=== PATIENT | female | born 1955 | race Caucasian/White ===

== ENCOUNTER 2021-12-11 19:15 | Emergency (ER) | payer OTHER, SELFPAY ==
[2021-12-11 19:27] VITALS: BP 188/91; PULSE 70; RESP 18; TEMP 36.7; O2SAT 98; BMI 34.9
--- NOTE | 2021-12-11 19:34 | DI.RAD.S_ITS ---
PROCEDURE: XR CHEST 1V INDICATIONS: chest pain TECHNIQUE: One view of the chest was acquired. COMPARISON: None. FINDINGS: Surgical changes and devices: None. Lungs and pleura: Lungs are clear. No pleural effusions or pneumothorax. Mediastinum: Mediastinal contours appear normal. Heart size is normal. Bones and chest wall: No suspicious bony lesions. Overlying soft tissues appear unremarkable. IMPRESSION: No acute process. Dictated by: Sarah Aldrich M.D. on 12/11/2021 at 19:48 Approved by: Sarah Aldrich M.D. on 12/11/2021 at 19:48
[2021-12-11 19:45] VITALS: PULSE 65; O2SAT 96
[2021-12-11 20:00] VITALS: PULSE 61; RESP 28; O2SAT 96
[2021-12-11 20:04] LABS: Add Manual Diff / Slide Review NO; Basophils Absolute Auto 100 /uL (0-100); Basophils Percent Auto 0.5 % (0-2); Eosinophils Absolute Auto 300 /uL (0-450); Eosinophils Percent Auto 2.9 % (2-4); Hematocrit 41.3 % (36-46); Hemoglobin 13.8 g/dL (12.0-16.0); Lymphocytes Absolute Auto 2700 /uL (1100-4500); Lymphocytes Percent Auto 23.5 % (25-40); Mean Corpuscular HGB Conc 33.3 % (30-36); Mean Corpuscular Hemoglobin 29.6 PG (26-34); Mean Corpuscular Volume 88.9 fL (80-100); Monocytes Absolute Auto 600 /uL (0-900); Neutrophils Absolute Auto 7800 /uL (1500-7000); Neutrophils Percent Auto 68.1 % (50-75); Platelet Count 309 X10^3/uL (150-400); Red Blood Cell Count 4.65 X10^6/uL (4.0-5.2); Red Cell Distribution Width 14.3 % (11.6-14.8); White Blood Cell Count 11.4 X10^3/uL (4.5-11.0)
[2021-12-11 20:16] LABS: Alanine Aminotransferase 15 IU/L (<35); Albumin 4.1 g/dL (3.5-5.0); Albumin Globulin Ratio 1.2 (1.0-2.8); Alkaline Phosphatase 83 U/L (38-126); Aspartate Aminotransferase 25 IU/L (14-36); BUN Creatinine Ratio 17.5 (6-22); Bilirubin Total 0.3 mg/dL (0.2-1.3); Blood Urea Nitrogen 18 mg/dL (7-17); Calcium 8.9 mg/dL (8.4-10.2); Carbon Dioxide 25 mmol/L (22-32); Chloride 104 mmol/L (98-107); Creatine Kinase 118 U/L (30-135); Estimated Glomerular Filt Rate > 60 mL/min (>60); Globulin 3.3 g/dL (1.7-4.1); Glucose 101 mg/dL (80-110); HEMOLYSIS < 15 (0-50); Lipase 80 U/L (23-300); Magnesium 1.9 mg/dL (1.6-2.3); Potassium 3.5 mmol/L (3.4-5.1); Sodium 137 mmol/L (137-145); Total Protein 7.4 g/dL (6.3-8.2)
[2021-12-11 20:27] LABS: Troponin I < 0.012 ng/mL (0.01-0.034)
[2021-12-11 20:30] VITALS: PULSE 58; RESP 20
[2021-12-11 20:31] LABS: CKMB % Relative Index 1.4 % (1.5-5.0); Creatine Kinase MB 1.61 ng/mL (<2.37)
[2021-12-11] MEDS: GLUCAGON,HUMAN RECOMBINANT 1 MG/ML VIAL IV (20:48)
[2021-12-11 21:42] VITALS: BP 166/84
--- NOTE | 2021-12-12 04:15 | ED_ITS ---
HPI - Chest Pain General Chief Complaint: Chest Pain Stated Complaint: severe chest pain Time Seen by Provider: 12/11/21 19:41 Source: patient Mode of arrival: Family Vehicle Limitations: no limitations History of Present Illness HPI narrative: 66-year-old female nonsmoker with history of GERD and esophageal strictures presents family in the chief complaint of concern for esophageal foreign body. She had been eating some chicken, states there is no bone or sharp objects but that it has become lodged in her throat. She denies any fever chills nor vomiting, she has had no cough or shortness of breath. She states that she is able to still swallow liquids but she can feel them working the way around the piece of chicken she thinks is stuck. She is otherwise well and free of complaint. She states that she had seen a process supervisor a few months ago and had both an endoscopy and colonoscopy and was told that though she has significant inflammation biopsies would suggest against Ward's esophagus Related Data Home Medications Medication Instructions Recorded Confirmed LEVOTHYROXINE SODIUM (Synthroid) 0.125 mg PO EVERY DAY #0 04/06/06 [METROGEL] #0 04/06/06 Allergies Allergy/AdvReac Type Severity Reaction Status Date / Time Tetracyclines Allergy Rash Verified 12/11/21 19:35 Review of Systems Review of Systems Narrative: GENERAL: Denies chills, fatigue, malaise, fever, sweats. HEENT: See HPI RESPIRATORY: Denies dyspnea, cough, wheezing, hemoptysis, sputum. CARDIOVASCULAR: Denies chest pain, palpitations, orthopnea, edema, GASTROINTESTINAL: Denies nausea, vomiting, abdominal pain, diarrhea, constipation, melena. : Denies dysuria, frequency, incontinence, hematuria, urinary retention. MUSCULOSKELETAL: denies weakness, joint pain, or bony pain SKIN: Denies rash, skin lesions, or other NEUROLOGIC: Denies weakness, headache, numbness, change in speech, confusion, seizures, incoordination. PSYCHIATRIC: No concerning psychosocial issues. 12 point review of systems is negative except for those stated above Patient History Social History Smoking Status: Never smoker Smoking Status: Never smoker alcohol intake frequency: 0-2 drinks per day Substance Use Type: does not use Exam Narrative Exam Narrative: GENERAL: [] year old patient appears stated age. Well-developed patient, in mild distress. HEAD: Atraumatic. Normocephalic. EYES: Pupils equal round and reactive. Extraocular motions intact. No scleral icterus. No injection or drainage. ENT: Nose without bleeding, purulent drainage. Throat without erythema, tonsillar hypertrophy or exudate. Airway patent. NECK: Trachea midline. Non tender CARDIOVASCULAR: Regular rate and rhythm without murmurs, gallops, or rubs. RESPIRATORY: Clear to auscultation. Breath sounds equal bilaterally. No wheezes, rales, or rhonchi. GASTROINTESTINAL: Abdomen soft, non-tender, nondistended. EXTREMITIES: No edema or joint tenderness. BACK: Nontender without deformity or crepitance. No flank tenderness. NEURO: AOx3. SKIN: No rash or erythema of visible areas Initial Vital Signs Initial Vital Signs: Vital Signs Temperature 98.1 F 12/11/21 19:27 Pulse Rate 70 12/11/21 19:27 Respiratory Rate 18 12/11/21 19:27 Blood Pressure 188/91 H 12/11/21 19:27 Pulse Oximetry 98 12/11/21 19:27 Course Orders Ordered: ED Orders 12/11/21 19:34 XR chest 1V Stat 12/11/21 19:50 Complete Blood Count AUTO DIFF Stat Comprehensive Metabolic Panel Stat Lipase Stat Magnesium Stat Troponin & CK Cardiac Panel Stat Discontinued Medications Glucagon (Glucagon,Human Recombinant 1 Mg/Ml Vial) 1 mg IV NOW ONE Stop: 12/11/21 20:38 Last Admin: 12/11/21 20:48 Dose: 1 mg Documented by: [email or web address] Reevaluation(s) Reevaluation #1: Patient able to swallow her jessica scotty without vomiting though she can feel fullness in her throat Reevaluation #2: Patient felt significant improvement after use of glucagon in feels like the for eign body has slid down Vital Signs Vital signs: Vital Signs - 8 hr 12/11/21 20:30 12/11/21 21:42 Pulse Rate 58 L Respiratory Rate 20 Blood Pressure 166/84 H MDM - Chest Pain Lab Data Result diagrams: 12/11/21 19:50 12/11/21 19:50 Labs: Lab Results 12/11/21 12/11/21 Range/Units 19:50 19:50 WBC 11.4 H (4.5-11.0) X10^3/uL RBC 4.65 (4.0-5.2) X10^6/uL Hgb 13.8 (12.0-16.0) g/dL Hct 41.3 (36-46) % MCV 88.9 (80-100) fL MCH 29.6 (26-34) PG MCHC 33.3 (30-36) % RDW 14.3 (11.6-14.8) % Plt Count 309 (150-400) X10^3/uL Neut % (Auto) 68.1 (50-75) % Lymph % (Auto) 23.5 L (25-40) % [place] % (Auto) 5.0 (3-14) % Eos % (Auto) 2.9 (2-4) % Baso % (Auto) 0.5 (0-2) % Neut # (Auto) 7800 H (8583-9038) /uL Lymph # (Auto) 2700 (6449-0991) /uL [place] # (Auto) 600 (0-900) /uL Eos # (Auto) 300 (0-450) /uL Baso # (Auto) 100 (0-100) /uL Sodium 137 (137-145) mmol/L Potassium 3.5 (3.4-5.1) mmol/L Chloride 104 (98-107) mmol/L Carbon Dioxide 25 (22-32) mmol/L BUN 18 H (7-17) mg/dL Creatinine 1.03 (0.52-1.04) mg/dL Estimated GFR > 60 (>60) mL/min BUN/Creatinine Ratio 17.5 (6-22) Glucose 101 (80-110) mg/dL Calcium 8.9 (8.4-10.2) mg/dL Magnesium 1.9 (1.6-2.3) mg/dL Total Bilirubin 0.3 (0.2-1.3) mg/dL AST 25 (14-36) IU/L ALT 15 (<35) IU/L Alkaline Phosphatase 83 (38-126) U/L Total Creatine Kinase 118 (30-135) U/L CK-MB (CK-2) 1.61 (<2.37) ng/mL CK-MB (CK-2) Rel Index 1.4 L (1.5-5.0) % Troponin I < 0.012 (0.01-0.034) ng/mL Total Protein 7.4 (6.3-8.2) g/dL Albumin 4.1 (3.5-5.0) g/dL Globulin 3.3 (1.7-4.1) g/dL Albumin/Globulin Ratio 1.2 (1.0-2.8) Lipase 80 (23-300) U/L Imaging Data Chest x-ray: Radiologist's Impression: Dipti Gupta??66??F??1955 ? Allergy/Adv: Tetracyclines Close Chest X-Ray (Signed) Sarah Aldrich - 12/11/21 Launch?[address] [address] XRay Report Signed Patient: Dipti Gupta MR#: [id number] : 1955 Acct:[id number] Age/Sex: 66 / F Date of Service: 12/11/21 Loc: ED Accession Number: [id number] ?? Procedure: XR chest 1V Ordering Provider: Erick Lemon D.O. PROCEDURE:? XR CHEST 1V ? INDICATIONS:? chest pain ? TECHNIQUE:? One view of the chest was acquired.? ? COMPARISON:? None. ? FINDINGS:? ? Surgical changes and devices:? None.? ? Lungs and pleura:? Lungs are clear.? No pleural effusions or pneumothorax.? ? Mediastinum:? Mediastinal contours appear normal.? Heart size is normal.? ? Bones and chest wall:? No suspicious bony lesions.? Overlying soft tissues appear unremarkable.? ? IMPRESSION:? No acute process. ? ? Dictated by: Sarah Aldrich M.D. on 12/11/2021 at 19:48 ? ? Approved by: Sarah Aldrich M.D. on 12/11/2021 at 19:48 ? [facility] Narrative Medical decision making narrative: Patient presents with concern for esophageal foreign body. She is quite certain that there were no bones, sharp or metallic objects. She feels fullness and difficulty swallowing but is able to get liquids down initially and has significant improvement after dose of glucagon. Chest x-ray is unremarkable neuro is no evidence of retained foreign body or perforation. She is tolerating orals without difficulty return precautions have been given and questions answered to her apparent satisfaction Discharge Plan Departure Patient Disposition: Home Clinical Impression: Esophageal foreign body Instructions: DI for Removal of Foreign Body From Esophagus Activity Restrictions/Additional Instructions: You likely had an esophageal foreign body that was helped to pass by the administration of glucagon. It is not uncommon to have some residual discomfort afterwards that is typically due to inflammation. Please continue taking your regular medications and follow up with the doctor that performed your recent EGD, call the office and let them know that you were seen in the emergency department and we'd like you seen in follow up. Return for any concerns Prescriptions: No Action LEVOTHYROXINE SODIUM (Synthroid) 0.125 mg PO EVERY DAY Qty: 0 0RF [METROGEL] Qty: 0 0RF Visit Report Forms: Patient Portal/API
== END 2021-12-11 21:42 | disposition home or self-care (01) ==
PROVIDERS: Emergency Provider Emergency Medicine
DX: T18.108A Unspecified foreign body in esophagus causing other injury, initial encounter (principal)
CPT/HCPCS: 36415; 71045; 80053; 82550; 82553; 83690; 83735; 84484; 85025; 93005; 93010; 96374; 99284; J1610

== ENCOUNTER 2022-01-21 15:45 | Emergency (ER) | payer OTHER, SELFPAY ==
[2022-01-21 16:05] VITALS: BP 168/91; PULSE 81; RESP 18; TEMP 36.6; O2SAT 98; BMI 31.0
--- NOTE | 2022-01-21 16:06 | DI.RAD.S_ITS ---
PROCEDURE: XR CHEST 1V INDICATIONS: chest pain TECHNIQUE: One view of the chest was acquired. COMPARISON: [facility], CR, XR CHEST 1V, 12/11/2021, 19:36. FINDINGS: Surgical changes and devices: None. Lungs and pleura: Lungs are clear. No pleural effusions or pneumothorax. Mediastinum: Mediastinal contours appear normal. Heart size is normal. Bones and chest wall: No suspicious bony lesions. Overlying soft tissues appear unremarkable. IMPRESSION: No acute cardiopulmonary findings. Dictated by: Angela Moss M.D. on 01/21/2022 at 16:47 Approved by: Angela Moss M.D. on 01/21/2022 at 16:48
[2022-01-21 16:47] LABS: Add Manual Diff / Slide Review NO; Basophils Absolute Auto 0 /uL (0-100); Basophils Percent Auto 0.4 % (0-2); Eosinophils Absolute Auto 0 /uL (0-450); Eosinophils Percent Auto 0.5 % (2-4); Hematocrit 43.8 % (36-46); Hemoglobin 14.9 g/dL (12.0-16.0); Lymphocytes Absolute Auto 1400 /uL (1100-4500); Lymphocytes Percent Auto 30.9 % (25-40); Mean Corpuscular HGB Conc 34.1 % (30-36); Mean Corpuscular Hemoglobin 29.5 PG (26-34); Mean Corpuscular Volume 86.6 fL (80-100); Monocytes Absolute Auto 400 /uL (0-900); Monocytes Percent Auto 9.6 % (3-14); Neutrophils Absolute Auto 2700 /uL (1500-7000); Neutrophils Percent Auto 58.6 % (50-75); Platelet Count 243 X10^3/uL (150-400); Red Blood Cell Count 5.06 X10^6/uL (4.0-5.2); Red Cell Distribution Width 14.3 % (11.6-14.8); White Blood Cell Count 4.6 X10^3/uL (4.5-11.0)
[2022-01-21 16:50] LABS: Alanine Aminotransferase 21 IU/L (<35); Albumin 4.3 g/dL (3.5-5.0); Albumin Globulin Ratio 1.3 (1.0-2.8); Alkaline Phosphatase 76 U/L (38-126); Aspartate Aminotransferase 25 IU/L (14-36); BUN Creatinine Ratio 12.8 (6-22); Bilirubin Total 0.8 mg/dL (0.2-1.3); Blood Urea Nitrogen 10 mg/dL (7-17); Calcium 9.1 mg/dL (8.4-10.2); Carbon Dioxide 26 mmol/L (22-32); Chloride 101 mmol/L (98-107); Creatine Kinase 51 U/L (30-135); D Dimer 649 ng/mL (<230); Estimated Glomerular Filt Rate > 60 mL/min (>60); Globulin 3.2 g/dL (1.7-4.1); Glucose 100 mg/dL (80-110); HEMOLYSIS 17 (0-50); Lipase 127 U/L (23-300); Potassium 3.7 mmol/L (3.4-5.1); Sodium 136 mmol/L (137-145); Total Protein 7.5 g/dL (6.3-8.2)
[2022-01-21 17:02] LABS: NT-proBNP (BNP-Adult 18+) 47 pg/mL (<125); Troponin I < 0.012 ng/mL (0.01-0.034)
[2022-01-21 17:07] LABS: Procalcitonin 0.06 ng/mL (<0.5)
--- NOTE | 2022-01-21 18:11 | DI.CT.S_ITS ---
PROCEDURE: CT ANGIO CHEST PE PROTOCOL INDICATIONS: covid + x 8 days, increasing sob, + dimer TECHNIQUE: After the administration of intravenous contrast, 2 mm thick sections acquired from the pulmonary apices to the posterior costophrenic angles. 3-dimensional maximum intensity projection (MIP) coronal and sagittal reformats were then acquired through the thorax. For radiation dose reduction, the following was used: automated exposure control, adjustment of mA and/or kV according to patient size. COMPARISON: [facility], CR, XR CHEST 1V, 01/21/2022, 16:30. FINDINGS: Image quality: Excellent. Pulmonary arteries: Pulmonary arteries are normal in size, and demonstrate no intraluminal filling defects to suggest central pulmonary embolism. Lungs and pleura: Scattered patchy areas of ground-glass opacity bilaterally. Overall this is [id number] in severity. No pleural effusions or pneumothorax. Central and peripheral airways are patent. Mediastinum: Heart size is normal, without pericardial effusion. No mediastinal or hilar adenopathy. Thoracic aorta is normal in caliber and enhancement. Esophagus is normal in caliber, without hiatal hernia. Bones and chest wall: No suspicious bony lesions. Ribs and thoracic spine appear intact throughout. No axillary or supraclavicular adenopathy. Bilateral breast implants. Abdomen: Visualized upper abdominal solid organs appear normal in the early arterial phase of enhancement. IMPRESSION: 1. No pulmonary embolism. 2. [id number] bilateral patchy ground-glass opacity. This is in keeping with COVID-19. Dictated by: Aman Pat M.D. on 01/21/2022 at 20:09 Approved by: Aman Pat M.D. on 01/21/2022 at 20:15
--- NOTE | 2022-01-21 19:23 | ED_ITS ---
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 Patient states she developed COVID symptoms on January 11 with fevers, generalized weakness, her limbs have felt weak in general, she is had chest discomfort which she describes as heartburn sensation of shortness of breath. She stopped taking her pantoprazole. She is tried Tums at home without any help. She is had nausea she is had vomiting intermittently but not persistently, she is had diarrhea like stools. She is had a sensation of shortness of breath. No syncope. Patient states some mild swelling in her ankles. She is not immunized for coronavirus. Patient states her only surgeries have been hysterectomy and enucleation of her right eye secondary to injury. She is allergic to tetracycline. No tobacco, alcohol or illicit. She states she does not actively have a primary care physician. She has tried ibuprofen with minimal improvement. Related Data Home Medications Medication Instructions Recorded Confirmed LEVOTHYROXINE SODIUM (Synthroid) 0.125 mg PO EVERY DAY ##0 04/06/06 [METROGEL] ##0 04/06/06 Allergies Allergy/AdvReac Type Severity Reaction Status Date / Time Tetracyclines Allergy Rash Verified 12/11/21 19:35 Review of Systems Review of Systems ROS Unobtainable: All systems reviewed & are unremarkable except as noted in HPI and below Patient History Social History Smoking Status: Never smoker Smoking Status: Never smoker alcohol intake frequency: 0-2 drinks per day Substance Use Type: does not use Exam Narrative Exam Narrative: GENERAL: Alert and oriented x three, mild distress. HEENT: Head normocephalic, atraumatic, EOMI, pupils reactive, patient has eye patch over right eye, face symmetric, moist mucous membranes NECK: Supple, full range of motion CARDIOVASCULAR: Regular rate and rhythm without murmurs, rubs or gallops. No JVD. No swelling bilateral lower extremities. RESPIRATORY: Breath sounds equal bilaterally, no wheezes rales or rhonchi. No tachypnea or accessory muscle use. ABDOMEN: Soft, nontender. Normoactive bowel sounds all 4 quadrants. No guarding or rebound, rigidity, no mass : No CVA tenderness EXTREMITIES: Normal range of motion, no clubbing or edema. Neurovascularly intact NEUROLOGICAL: Cranial nerves II through XII grossly intact. Moving all extremities SKIN: Warm, dry, no petechiae, no rashes or lesions. Initial Vital Signs Initial Vital Signs: Vital Signs Temperature 97.8 F 01/21/22 16:05 Pulse Rate 81 01/21/22 16:05 Respiratory Rate 18 01/21/22 16:05 Blood Pressure 168/91 H 01/21/22 16:05 Pulse Oximetry 98 01/21/22 16:05 Oxygen Delivery Method 01/21/22 16:05 Scores PERC Score Age greater than or equal to 50 years: Yes Heart rate greater than or equal to 100 bpm: No Room Air O2 Sat less than 95%: No Unilateral leg swelling: No Recent trauma or surgery: No Hemoptysis: No Prior PE or DVT: No Hormone Use: No Total PERC Score: 1 Course Orders Ordered: Discontinued Medications Al Hydrox/Mg Hydrox/Simethicone 20 ml/ Lidocaine HCl 15 ml 0 ml PO NOW ONE Stop: 01/21/22 19:54 Last Admin: 01/21/22 20:18 Dose: 35 ml Documented By: MEE Reevaluation(s) Reevaluation #1: Patient had GI cocktail was not helpful. We reviewed her findings today that her CT shows pneumonia but no blood clots. Her symptoms are very consistent with her COVID infection to continue to monitor. If she wishes she can buy a pulse oximeter to monitor oxygen saturation at home and I would expect her to start to improve over the next several days although there is a possibility of decline in symptoms. Time: 21:02 Vital Signs Vital signs: Vital Signs - 8 hr 01/21/22 16:05 01/21/22 20:01 Temperature 97.8 F Pulse Rate 81 64 Respiratory Rate 18 18 Blood Pressure 168/91 H 119/61 Pulse Oximetry 98 96 Oxygen Delivery Method Room Air Room Air MDM - SOB/Dyspnea Lab Data Result diagrams: 01/21/22 16:28 01/21/22 16:28 Labs: Lab Results 01/21/22 01/21/22 01/21/22 Range/Units 16:28 16:28 16:28 WBC 4.6 (4.5-11.0) X10^3/uL RBC 5.06 (4.0-5.2) X10^6/uL Hgb 14.9 (12.0-16.0) g/dL Hct 43.8 (36-46) % MCV 86.6 (80-100) fL MCH 29.5 (26-34) PG MCHC 34.1 (30-36) % RDW 14.3 (11.6-14.8) % Plt Count 243 (150-400) X10^3/uL Neut % (Auto) 58.6 (50-75) % Lymph % (Auto) 30.9 (25-40) % [place] % (Auto) 9.6 (3-14) % Eos % (Auto) 0.5 L (2-4) % Baso % (Auto) 0.4 (0-2) % Neut # (Auto) 2700 (5772-3831) /uL Lymph # (Auto) 1400 (5000-5621) /uL [place] # (Auto) 400 (0-900) /uL Eos # (Auto) 0 (0-450) /uL Baso # (Auto) 0 (0-100) /uL D-Dimer 649 H (<230) ng/mL Sodium 136 L (137-145) mmol/L Potassium 3.7 (3.4-5.1) mmol/L Chloride 101 (98-107) mmol/L Carbon Dioxide 26 (22-32) mmol/L BUN 10 (7-17) mg/dL Creatinine 0.78 (0.52-1.04) mg/dL Estimated GFR > 60 (>60) mL/min BUN/Creatinine Ratio 12.8 (6-22) Glucose 100 (80-110) mg/dL Calcium 9.1 (8.4-10.2) mg/dL Total Bilirubin 0.8 (0.2-1.3) mg/dL AST 25 (14-36) IU/L ALT 21 (<35) IU/L Alkaline Phosphatase 76 (38-126) U/L Total Creatine Kinase 51 (30-135) U/L CK-MB (CK-2) TNP CK-MB (CK-2) Rel Index TNP Troponin I < 0.012 (0.01-0.034) ng/mL NT-Pro-B Natriuret Pep 47 (<125) pg/mL Total Protein 7.5 (6.3-8.2) g/dL Albumin 4.3 (3.5-5.0) g/dL Globulin 3.2 (1.7-4.1) g/dL Albumin/Globulin Ratio 1.3 (1.0-2.8) Lipase 127 (23-300) U/L Procalcitonin 0.06 (<0.5) ng/mL Imaging Data Chest x-ray: Radiologist's Impression: Close Chest CTA 01/21/22 Chest X-Ray (Signed) Angela Moss - 01/21/22 Chest X-Ray (Signed) Sarah Aldrich - 12/11/21 Launch?[place] [address] XRay Report Signed Patient: Dipti Gupta MR#: [id number] : 1955 Acct:[id number] Age/Sex: 67 / F Date of Service: 01/21/22 Loc: ED Accession Number: [id number] ?? Procedure: XR chest 1V Ordering Provider: Sandra Casas D.O. PROCEDURE:? XR CHEST 1V ? INDICATIONS:? chest pain ? TECHNIQUE:? One view of the chest was acquired.? ? COMPARISON:? [facility], , XR CHEST 1V, 12/11/2021, 19:36. ? FINDINGS:? ? Surgical changes and devices:? None.? ? Lungs and pleura:? Lungs are clear.? No pleural effusions or pneumothorax.? ? Mediastinum:? Mediastinal contours appear normal.? Heart size is normal.? ? Bones and chest wall:? No suspicious bony lesions.? Overlying soft tissues appear unremarkable.? ? IMPRESSION:? No acute cardiopulmonary findings. ? ? Dictated by: Angela Moss M.D. on 01/21/2022 at 16:47 ? ? Approved by: Angela Moss M.D. on 01/21/2022 at 16:48? CT scan - chest: Radiologist's Impression: Close Chest CTA (Signed) Aman Pat - 01/21/22 Chest X-Ray (Signed) Angela Moss - 01/21/22 Launch?[facility] [address] [address] [address] Scan Report Signed Patient: Dipti Gupta MR#: [id number] : 1955 Acct:[id number] Age/Sex: 67 / F Date of Service: 01/21/22 Loc: ED Accession Number: [id number] ?? Procedure: CT angio chest PE protocol Ordering Provider: Shama Rosario D.O. PROCEDURE:? CT ANGIO CHEST PE PROTOCOL ? INDICATIONS:? covid + x 8 days, increasing sob, + dimer ? TECHNIQUE:? After the administration of intravenous contrast, 2 mm thick sections acquired from the pulmonary apices to the posterior costophrenic angles.? 3-dimensional maximum intensity projection (MIP) coronal and sagittal reformats were then acquired through the thorax.? For radiation dose reduction, the following was used:? automated exposure control, adjustment of mA and/or kV according to patient size.? ? COMPARISON:? [facility], CR, XR CHEST 1V, 01/21/2022, 16:30. ? FINDINGS:? Image quality:? Excellent.? ? Pulmonary arteries:? Pulmonary arteries are normal in size, and demonstrate no intraluminal filling defects to suggest central pulmonary embolism.? ? Lungs and pleura:? Scattered patchy areas of ground-glass opacity bilaterally.? Overall this is [id number]-[id number] in severity.? No pleural effusions or pneumothorax.? Central and peripheral airways are patent.? ? Mediastinum:? Heart size is normal, without pericardial effusion.? No mediastinal or hilar adenopathy.? Thoracic aorta is normal in caliber and enhancement.? Esophagus is normal in caliber, without hiatal hernia.? ? Bones and chest wall:? No suspicious bony lesions.? Ribs and thoracic spine appear intact throughout.? No axillary or supraclavicular adenopathy.? Bilateral breast implants.? ? Abdomen:? Visualized upper abdominal solid organs appear normal in the early arterial phase of enhancement.? ? IMPRESSION:? 1. No pulmonary embolism. ? 2. [id number]-[id number] bilateral patchy ground-glass opacity.? This is in keeping with COVID-19. ? ? Dictated by: Aman Pat M.D. on 01/21/2022 at 20:09 ? ? Approved by: Aman Pat M.D. on 01/21/2022 at 20:15?? ECG Data Attestation: I personally reviewed and interpreted this ECG as follows: Prior ECG tracings: available for review Interpretation: Sinus rhythm, rate of 76 KS 146, QRS is 78 QTC 447. Biphasic T-wave in 3 but no other acute ST changes appreciated. MDM Narrative Medical decision making narrative: This is a 67-year-old female with history of GERD and hypothyroidism with positive for COVID patient has had symptoms for the past 10 days. She is had increasing chest discomfort and shortness of breath. She is not hypoxic on upon arrival. Labs are reassuring, troponin is negative, EKG shows no acute changes, normal electrolytes. Patient does have some increased risk for PE and PE scan was initiated. Patient PE scan shows COVID pneumonia but no pulmonary emboli. No acute changes on EKG or troponin for cardiac causes, no hypoxia on recheck here in the department. Patient's chest pain has continued she thought it might be reflux GI cocktail was not helpful. Patient and I discussed Tylenol/ibuprofen for discomfort if she wants, to monitor her pulse ox at home if she is willing to purchase 1 that I would expect her to start to continue to improve and to return if worsening symptoms. Patient does express frustration that her problem is not resolved and her care during her stay. Discharge Plan Departure Patient Disposition: Home Clinical Impression: Chest pain, Pneumonia due to 2019 novel coronavirus Instructions: DI for COVID-19 (Suspected or Confirmed ) Activity Restrictions/Additional Instructions: *You have been diagnosed with covid pneumonia If you wish you may obtain a pulse oximeter for use at home to monitor. Please return to the ER if your pulse oximeter shows an O2 saturation less than 90%. You can take ibuprofen up to 600 mg every 6 hours and/or Tylenol up to a 1000 mg every 6 hours as needed for pain and/or fever. Please return for rapidly worsening symptoms, passing out, low oxygen saturation increasing shortness of breath, persistent vomiting or other new or concerning symptoms. *What to do: * per recommendations from the CDC and the [facility] Department of Health * stay home except to get medical care. Restrict activities outside your home, except for getting medical care. Do not go to work, school, or public areas. Avoid using public transportation, ride sharing, or taxis. * separate yourself from other people in your home. * call ahead before visiting your doctor * Wear a face mask * Cover your coughs and sneezes * Clean your hands often * Avoid sharing household items * Clean all high-touch services every day * Monitor your symptoms and seek prompt medical attention if your illness is worsening, particularly with difficulty in breathing. Prescriptions: No Action LEVOTHYROXINE SODIUM (Synthroid) 0.125 mg PO EVERY DAY Qty: 0 [METROGEL] Qty: 0 Visit Report Forms: Patient Portal/API
[2022-01-21 20:01] VITALS: BP 119/61; PULSE 64; RESP 18; O2SAT 96
[2022-01-21] MEDS: MAG HYDROX/ALUMINUM/SIMETH SUS 20 ML, LIDOCAINE VISCOUS 2% 15 ML PO (20:18)
--- NOTE | 2022-01-21 21:18 | PC.NURSE ---
Patient was very upset at time of discharge regarding her time in the ED. Declined discharge teaching and vitals. Allowed for patient to vent frustrations.
== END 2022-01-21 21:10 | disposition home or self-care (01) ==
PROVIDERS: Emergency Medicine; Emergency Provider Emergency Medicine
DX: U07.1 COVID-19 (principal); J12.82 Pneumonia due to coronavirus disease 2019; R07.9 Chest pain, unspecified
CPT/HCPCS: 36415; 71045; 71275; 80053; 82550; 83690; 83880; 84145; 84484; 85025; 85379; 93005; 93010; 99283; 99284; Q9967

== ENCOUNTER 2025-02-14 22:35 | Emergency (ER) | payer MEDICARE, SELFPAY ==
[2025-02-14] VITALS (7 sets, daily range): BP systolic 106–192; BP diastolic 56–84; PULSE 56–69; RESP 16–18; TEMP 36.6; O2SAT 93–98; BMI 31.3
[2025-02-14] MEDS: NITROGLYCERIN 0.4 MG SL TAB SL (23:32)
[2025-02-14] MEDS: GLUCAGON,HUMAN RECOMBINANT 1 MG/ML VIAL IV (23:32)
[2025-02-14] MEDS: SODIUM CHLORIDE 0.9% 1,000 ML 1000 ML IV (23:59)
[2025-02-15] VITALS (9 sets, daily range): BP systolic 103–118; BP diastolic 51–59; PULSE 53–59; O2SAT 94–97
--- NOTE | 2025-02-15 | ED.SKABFB ---
HPI - Skin/Abscess/Foreign Bdy General Chief complaint: Skin/Abscess/Foreign Body Stated complaint: something stuck in throat, sob Time Seen by Provider: 02/14/25 23:11 Source: patient Mode of arrival: Ambulatory Limitations: no limitations History of Present Illness HPI narrative: 70-year-old female with history of previous esophageal foreign body, last time about 2 years ago, was eating chicken, and felt like it got stuck in her throat. Unable to swallow her secretions, spitting. Nonbloody. Having increasing substernal discomfort. No recent endoscopy procedures, not taking recent regular antacids. Related Data Home Medications ?Medication ?Instructions ?Recorded ?Confirmed LEVOTHYROXINE SODIUM (Synthroid) 0.125 mg PO EVERY DAY ##0 04/06/06 [METROGEL] ##0 04/06/06 Allergies Allergy/AdvReac Type Severity Reaction Status Date / Time Tetracyclines Allergy Rash Verified 02/14/25 22:40 Patient History Social History Smoking Status: Never smoker Smoking Status: Never smoker alcohol intake frequency: 0-2 drinks per day Exam Narrative Exam Narrative: GENERAL: Well-developed patient, in mild distress due to retained esophageal foreign body. Spitting into emesis bag. HEAD: Atraumatic. Normocephalic. EYES: Pupils equal round and reactive. Extraocular motions intact. No scleral icterus. No injection or drainage. ENT: Nose without bleeding, purulent drainage. Throat without erythema, tonsillar hypertrophy or exudate. Airway patent. NECK: Trachea midline. Non tender CARDIOVASCULAR: Regular rate and rhythm without murmurs, gallops, or rubs. RESPIRATORY: Clear to auscultation. Breath sounds equal bilaterally. No wheezes, rales, or rhonchi. GASTROINTESTINAL: Abdomen soft, non-tender, nondistended. EXTREMITIES: No edema or joint tenderness. BACK: Nontender without deformity or crepitance. No flank tenderness. NEURO: AOx3. Motor functions grossly nonfocal. SKIN: No rash or erythema of visible areas Initial Vital Signs Initial Vital Signs: Vital Signs Temperature 97.9 F 02/14/25 22:40 Pulse Rate 68 02/14/25 22:40 Respiratory Rate 18 02/14/25 22:40 Blood Pressure 192/84 H 02/14/25 22:40 Pulse Oximetry 98 02/14/25 22:40 Oxygen Delivery Method Room Air 02/14/25 22:40 Course Orders Ordered: Discontinued Medications Glucagon (Glucagon,Human Recombinant 1 Mg/Ml Vial) 1 mg IV NOW ONE Stop: 02/14/25 23:12 Last Admin: 02/14/25 23:32 Dose: 1 mg Documented By: ELIGIO Sodium Chloride (Normal Saline 0.9%) 1,000 mls @ 1,000 mls/hr IV BOLUS ONE Stop: 02/15/25 00:56 Last Infusion: 02/15/25 00:47 Dose: Infused Documented By: Admin: 02/14/25 23:59 Dose: 1,000 mls/hr Documented By: ELIGIO Nitroglycerin (Nitroglycerin 0.4 Mg Sl Tab) 0.4 mg SL NOW ONE Stop: 02/14/25 23:12 Last Admin: 02/14/25 23:32 Dose: 0.4 mg Documented By: ELIGIO Vital Signs Vital signs: Vital Signs - 8 hr 02/14/25 22:40 02/14/25 23:28 02/14/25 23:28 Temperature 97.9 F Pulse Rate 68 69 Respiratory Rate 18 18 Blood Pressure 192/84 H 147/68 H Pulse Oximetry 98 97 Oxygen Delivery Method Room Air Room Air 02/14/25 23:30 02/14/25 23:30 02/14/25 23:39 Temperature Pulse Rate 65 60 Respiratory Rate 16 16 Blood Pressure 132/62 Pulse Oximetry 97 97 Oxygen Delivery Method Room Air Room Air 02/14/25 23:39 02/14/25 23:45 02/14/25 23:45 Temperature Pulse Rate 57 L Respiratory Rate 16 Blood Pressure 130/61 112/56 L Pulse Oximetry 96 Oxygen Delivery Method Room Air 02/14/25 23:50 02/14/25 23:50 02/14/25 23:55 Temperature Pulse Rate 56 L Respiratory Rate Blood Pressure 108/57 L 106/57 L Pulse Oximetry 93 Oxygen Delivery Method Room Air 02/14/25 23:55 02/15/25 00:00 02/15/25 00:00 Temperature Pulse Rate 56 L 54 L Respiratory Rate Blood Pressure 118/59 L Pulse Oximetry 96 97 Oxygen Delivery Method Room Air Room Air 02/15/25 00:05 02/15/25 00:05 02/15/25 00:10 Temperature Pulse Rate 55 L Respiratory Rate Blood Pressure 106/51 L 112/51 L Pulse Oximetry 95 Oxygen Delivery Method Room Air 02/15/25 00:10 02/15/25 00:15 02/15/25 00:15 Temperature Pulse Rate 54 L 53 L Respiratory Rate Blood Pressure 103/53 L Pulse Oximetry 94 95 Oxygen Delivery Method Room Air Room Air 02/15/25 00:20 02/15/25 00:20 02/15/25 00:25 Temperature Pulse Rate 55 L 55 L Respiratory Rate Blood Pressure 108/54 L Pulse Oximetry 95 96 Oxygen Delivery Method Room Air Room Air 02/15/25 00:25 02/15/25 00:30 02/15/25 00:30 Temperature Pulse Rate 58 L Respiratory Rate Blood Pressure 108/52 L 106/52 L Pulse Oximetry 94 Oxygen Delivery Method Room Air 02/15/25 00:35 02/15/25 00:35 02/15/25 00:40 Temperature Pulse Rate 59 L Respiratory Rate Blood Pressure 104/52 L 113/56 L Pulse Oximetry 94 Oxygen Delivery Method Room Air 02/15/25 00:40 Temperature Pulse Rate 57 L Respiratory Rate Blood Pressure Pulse Oximetry 96 Oxygen Delivery Method Room Air MDM - Skin/Abscess/Foreign Bdy MDM Narrative Medical decision making narrative: Patient had immediate response to sublingual nitroglycerin and IV glucagon, with sipping of jessica scotty carbonated beverage, with passage of esophageal foreign body sensation. She had transient low blood pressure responsive to IV fluid bolus. She was subsequently able to take further sips, and ambulate. Advised to follow up with her PCP, consider repeat upper endoscopy to see if there is any strictures that might need to be dilated, or any concerning lesion that might need biopsy or other further follow up. Discharged home with family, stable, improved. Discharge Plan Departure Patient Disposition: Home Clinical Impression: Impacted foreign body in esophagus Activity Restrictions/Additional Instructions: Esophageal foreign body sensation by swallowing partially chewed chicken, foreign body sensation persisting. Sublingual nitroglycerin and IV glucagon given, with effervescent soda, with passage of food bolus. Transient low blood pressure from the nitroglycerin, IV fluid bolus. You are subsequently able to swallow secretions quite well, ambulatory. Consider follow up with your regular doctor, consider referral for upper endoscopy to screen for any stricture that might need dilation, or any esophageal lesions that might need biopsy, or any further use. Remember to thoroughly to your food, as he you seemed to be at increased risk for foreign body impaction for some reason. Consider course of omeprazole [id number] antacid for the next couple of weeks. Recheck with your regular doctor in follow up. Return to this/nearest emergency department for any change worsening symptoms or any concerns prior. Prescriptions: No Action LEVOTHYROXINE SODIUM (Synthroid) 0.125 mg PO EVERY DAY Qty: 0 [METROGEL] Qty: 0 Stand Alone Forms: Patient Portal/API
== END 2025-02-15 00:53 | disposition home or self-care (01) ==
PROVIDERS: Emergency Provider Emergency Medicine
DX: T18.128A Food in esophagus causing other injury, initial encounter (principal); W44.F3XA Food entering into or through a natural orifice, initial encounter
CPT/HCPCS: 36415; 96361; 96374; 99284; J1610